=== PATIENT | male | born 1980 | race Caucasian/White ===

== ENCOUNTER 2016-07-04 21:00 | Emergency (ER) | payer OTHER ==
[~2016-07-04 21:00] MED LIST: CYCLOGYL 1% OP S2 ML OD; ERYTHROMYCIN O3.5 G1 OD; ILOTYCIN1 GM OD; KEFLEX250 M2 PO; LORTAB 5/500 TA1 TA1 PO; NAPROSYN500 MG PO; NO MEDICATIONS; PENICILLIN PO; PHENERGAN25 MG PO; TYLENOL #3 PO; VOLTAREN75 MG PO
== END 2016-07-04 21:05 | disposition left against medical advice (07) ==
LOC: SED 21:00
DX: T40.1X1A Poisoning by heroin, accidental (unintentional), initial encounter (principal); Z98.890 Other specified postprocedural states; F17.210 Nicotine dependence, cigarettes, uncomplicated
CPT/HCPCS: 96374; 99284

== ENCOUNTER 2016-11-19 14:09 | Emergency (ER) | payer OTHER ==
[~2016-11-19] VITALS: Ht 180.3 cm; Wt 70.3 kg
--- NOTE | ~2016-11-19 | CR142 ---
[facility] A Service of [facility] & [facility] RADIOLOGY TEXT RESULTS PATIENT: JEFF JEREZ LOCATION: SED : 84 UNIT #: [id number] AGE: [address]: BRIAN ROY SEX: M ORDER DR: [id number] [address] [id number] E MR#: [id number] #: [id number] NAME: JEFF JEREZ : 1980 SEX: M STUDY DATE/TIME: 11/19/2016 14:39 UNIT: SED ROOM: STUDY DESCRIPTION: CR Hand Min 3 Views Rt Attending Physician: (Yang) Brian Roy Ordering Physician: (Yang) Brian Roy Primary Care Physician: No Primary Care Physician MEDICAL IMAGING REPORT This report is preliminary unless electronic signature is present. EXAM Right hand series, 11/19/2016. HISTORY Laceration of 4th, 5th digits distally. Happened today. Opening VCR. FINDINGS AP lateral and oblique radiographs of the right hand are presented. No acute traumatic fracture or malalignment. Old fracture of ulnar styloid process versus nonunion of ossification center. Generalized soft tissue swelling digit 3, 4 and 5. Soft tissue laceration, radial/palmar aspect of the third digit at level of head of middle phalanx. Soft tissue laceration palmar/radial aspect of the fourth digit at level of the distal phalangeal tuft. It is possible the laceration plane could extend to the bony surface of the tuft but I see no tuft injury. The laceration plane may involve a portion of the distal nail bed. Correlate with exam. Laceration radial/palmar aspect of the tip of the fifth digit just beyond the distal phalangeal tuft. No bony involvement. Laceration plane measures about 9 mm in length. If not mentioned above, the fourth digit laceration plane measures 8 to 9 mm, and the third digit laceration plane measures about 4 mm. No radiodense foreign bodies seen along these lacerations. Dictated by... Omi Cosme M.D. THIS IS AN ELECTRONICALLY VERIFIED REPORT Omi Cosme M.D. at 11/19/2016 10:46 PM Tereso [facility] A Service of [facility] & [facility] RADIOLOGY TEXT RESULTS PATIENT: JEFF JEREZ LOCATION: [facility] : [birth year] UNIT #: [id number] AGE: [address]: BRIAN ROY SEX: M ORDER DR: TD: 11/19/2016 22:27 JOB #: [id number] MEDICAL IMAGING REPORT Page 1 of 1
== END 2016-11-19 16:35 | disposition home or self-care (01) ==
LOC: SED 14:09
DX: S61.214A Laceration without foreign body of right ring finger without damage to nail, initial encounter (principal); S61.216A Laceration without foreign body of right little finger without damage to nail, initial encounter; F17.200 Nicotine dependence, unspecified, uncomplicated; W26.9XXA Contact with unspecified sharp object(s), initial encounter; Y92.69 Other specified industrial and construction area as the place of occurrence of the external cause; Y99.0 Civilian activity done for income or pay
CPT/HCPCS: 12002; 73130; 99283